=== PATIENT | female | born 1985 ===

== ENCOUNTER 2021-11-14 20:30 | Emergency (ER) | payer OTHER ==
[2021-11-14 20:50] VITALS: BP 131/85; PULSE 100; RESP 20; TEMP 98.9
[2021-11-14 21:23] LABS: Appearance,Urine Clear (Clear); Bilirubin,Urine 1+ (Negative); Blood,Urine Negative (Negative); Color,Urine Yellow; Glucose,Urine (UA) Negative (Negative); Ketones,Urine Trace (Negative); Leukocyte Esterase,Urine Negative (Negative); Nitrite,Urine Negative (Negative); PH, Urine 5.5 (5.0-8.0); Protein,Urine Trace (Negative); Specific Gravity,Urine 1.028 (1.001-1.035); Urobilinogen,Urine <2.0 mg/dL (<2.0)
[2021-11-14 21:57] LABS: Amphetamine Screen,Urine Not Detected (NotDetected); Barbiturate Screen,Urine Not Detected (NotDetected); Benzodiazepines Screen,Urine Not Detected (NotDetected); Cocaine Screen,Urine Not Detected (NotDetected); Methadone Screen, Urine Not Detected (NotDetected); Opiate Screen,Urine Not Detected (NotDetected); Oxycodone Screen, Urine Not Detected (NotDetected); Phencyclidine Screen,Urine Not Detected (NotDetected); Tricyclic Antidepressant,Urine Not Detected (NotDetected); Urn Cannabinoid Scrn Detected (NotDetected)
== END 2021-11-14 22:32 | disposition left against medical advice (07) ==
LOC: EC 20:30
DX: Z53.21 Procedure and treatment not carried out due to patient leaving prior to being seen by health care provider (principal)
CPT/HCPCS: 80306; 81003